=== PATIENT | female | born 1955 | race Caucasian/White ===

== ENCOUNTER → 2019-10-28 12:52 | Outpatient (CLI) | payer OTHER, SELFPAY ==
--- NOTE | ~2019-10-28 | XR_ITS ---
EXAMINATION: XR foot RT standing 2V DATE: 10/28/2019 13:41 INDICATION: Unspecified osteoarthritis, unspecified site. TECHNIQUE: 2 views of right foot standing were obtained. COMPARISON: None. FINDINGS: There is moderate hallux valgus. No fracture. There is mild osteoarthritis of first metatar sophalangeal joint and some of the interphalangeal joints and midfoot joints. There are enthesophytes at the plantar and posterior aspects of calcaneal tuberosity. IMPRESSION: 1. Mild polyarticular osteoarthritis. 2. Moderate hallux valgus. Reviewed, dictated and finalized at location A.
--- NOTE | ~2019-10-28 | XR_ITS ---
EXAMINATION: XR knee RT min 4V DATE: 10/28/2019 13:41 INDICATION: Unspecified osteoarthritis, unspecified site. TECHNIQUE: 4 views of right knee were obtained. COMPARISON: None. FINDINGS: Bone alignment is normal. No fracture. There is mild tricompartmental osteoarthritis. There is chondrocalcinosis of the menisci. There is a small knee joint effusion. IMPRESSION: 1. Mild right knee osteoarthritis. 2. Small right knee joint effusion. Reviewed, dictated and finalized at location A.
--- NOTE | ~2019-10-28 | XR_ITS ---
EXAMINATION: XR hand BI arthritis min 3V DATE: 10/28/2019 13:41 INDICATION: Unspecified osteoarthritis, unspecified site. TECHNIQUE: 4 views of right hand and 4 views of left hand on a total of 7 radiographs were obtained. COMPARISON: None. FINDINGS: RIGHT HAND: Bone alignment is normal. No fracture. There is mild osteoarthritis of first, second, and third metacarpophalangeal joints and all of the interphalangeal joints. LEFT HAND: Bone alignment is normal. No fracture. There is mild osteoarthritis of second and third me tacarpophalangeal joints and most of the interphalangeal joints. IMPRESSION: 1. Mild polyarticular osteoarthritis. Reviewed, dictated and finalized at location A.
--- NOTE | ~2019-10-28 | XR_ITS ---
EXAMINATION: XR knee LT min 4V DATE: 10/28/2019 13:41 INDICATION: Unspecified osteoarthritis, unspecified site. TECHNIQUE: 4 views of left knee were obtained. COMPARISON: None. FINDINGS: Bone alignment is normal. No fracture. There is moderate osteoarthritis of medial compartme nt and mild osteoarthritis of lateral and patellofemoral compartments. There is chondrocalcinosis of the menisci. There is a small knee joint effusion. IMPRESSION: 1. Moderate left knee osteoarthritis. 2. Small left knee joint effusion. Reviewed, dictated and finalized at location A.
--- NOTE | ~2019-10-28 | XR_ITS ---
XR hip BI 2V w AP pelvis DATE: 10/28/2019 13:41 INDICATION: Bilateral hip pain TECHNIQUE: AP pelvis. AP and lateral views of each hip COMPARISON: 05/30/2005 bilateral hip FINDINGS: Osteopenia. No pelvic fracture or bone destruction. The pubic symphysis and sacroiliac joints are intact; there i s joint space narrowing and spurring at the pubic symphysis. No fracture, dislocation, avascular necrosis or bone destruction of either hip. IMPRESSION: Osteopenia Degenerative change at the pubic symphysis Reviewed, dictated and finalized at location A.
--- NOTE | ~2019-10-28 | XR_ITS ---
XR foot LT standing 2V DATE: 10/28/2019 13:41 INDICATION: Osteoarthritis TECHNIQUE: Standing AP and lateral views COMPARISON: None FINDINGS: There is prominent chronic calcification along the distal Achilles tendon. Mild posterior and moderate plantar calcaneal enthesopathy. No fracture, dislocation, periosteal reaction or bone destruction. IMPRESSION: Achilles tendon calcification, posterior and plantar calcaneal enthesopathy Reviewed, dictated and finalized at location A. IMPRESSION: Achilles tendon calcification, posterior and plantar calcaneal enth esopathy
== END ==
PROVIDERS: PCP Family Medicine; Visit Provider Internal Medicine
DX: M19.041 Primary osteoarthritis, right hand (principal); M19.042 Primary osteoarthritis, left hand; M20.11 Hallux valgus (acquired), right foot; M19.071 Primary osteoarthritis, right ankle and foot; M85.859 Other specified disorders of bone density and structure, unspecified thigh; M25.461 Effusion, right knee; M77.32 Calcaneal spur, left foot; M25.462 Effusion, left knee; M17.0 Bilateral primary osteoarthritis of knee
CPT/HCPCS: 73130; 73521; 73564; 73620

== ENCOUNTER → 2021-04-20 14:35 | Outpatient (CLI) | payer OTHER, SELFPAY ==
--- NOTE | ~2021-04-20 | XR_ITS ---
EXAMINATION: XR_CERV2-3V_CR DATE: 04/20/2021 15:05 INDICATION: Neck pain. TECHNIQUE: 5 views of cervical spine standing were obtained. COMPARISON: None. FINDINGS: Bone alignment is normal. Vertebral body heights are normal. There is mildly decreased disc height at C3-C4, C5-C6, and C6-C7. There is multilevel uncovertebral joint osteoarthritis, severe on the right at C3-C4 on the left at C5-C6. There is multilevel mild facet joint osteoarthritis. There is mild central canal stenosis at C3-C4, C5-C6, and C6-C7. No prevertebral soft tissue swelling. IMPRESSION: 1. Mild cervical spondylosis. Reviewed, dictated and finalized at location A.
== END ==
PROVIDERS: PCP Physician Assistant; Visit Provider Physician Assistant
DX: M47.812 Spondylosis without myelopathy or radiculopathy, cervical region (principal)
CPT/HCPCS: 72040

== ENCOUNTER → 2022-07-17 11:04 | Outpatient (CLI) | payer MEDICARE, SELFPAY ==
--- NOTE | ~2022-07-17 | MM_ITS ---
EXAMINATION: MM screening [facility] BI w beverly HISTORY: Screening mammogram TECHNIQUE: Craniocaudal and mediolateral oblique 3-D tomosynthesis images were obtained and synthetic 2-D images were generated. CAD analysis was submitted and interpreted. COMPARISON: 05/29/2019, 05/19/2019, 01/24/2018 BREAST PARENCHYMAL COMPOSITION: The breasts are heterogeneously dense, which may obscure small masses . FINDINGS: RIGHT BREAST: An asymmetry is present in the far posterior third of the lower breast on the mediolate ral oblique view. LEFT BREAST: There are grouped calcifications in the posterior third of the upper outer quadrant of t he breast 13.8 cm from the nipple. IMPRESSION: 1. Right breast asymmetry and left breast calcifications. 2. Additional mammographic views and possible breast ultrasound are recommended. BI-RADS Category 0: Incomplete: Needs additional imaging evaluation. Reviewed, dictated and finalized at location A. 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 Right breast asymmetry and left breast calcifications. 2. Additional mammographic views and possible breast ultrasound are recommended . BI-RADS Category 0: Incomplete: Needs additional imaging evaluation.
== END ==
PROVIDERS: PCP Family Medicine; Visit Provider Family Medicine
DX: Z12.31 Encounter for screening mammogram for malignant neoplasm of breast (principal); R92.8 Other abnormal and inconclusive findings on diagnostic imaging of breast
CPT/HCPCS: 77063; 77067

== ENCOUNTER → 2022-08-06 08:30 | Outpatient (CLI) | payer MEDICARE, SELFPAY ==
--- NOTE | ~2022-08-06 | MMUS_ITS ---
EXAMINATION: MM diagnostic steve BI w beverly, US breast RT limited HISTORY: Follow-up right breast asymmetry and left breast calcifications TECHNIQUE: Additional 3-D tomosynthesis images of the breasts were performed and synthetic 2-D images were generated. CAD analysis was submitted and interpreted. High resolution Limited right breast ult rasound was performed. COMPARISON: Comparison to multiple prior studies sequentially, with oldest reviewed study dated 03/2018. BREAST PARENCHYMAL COMPOSITION: The breasts are heterogeneously dense, which may obscure small masses FINDINGS: MAMMOGRAPHIC FINDINGS: The right breast asymmetry inferiorly is less apparent with spot compression views. There are no disc rete masses or suspicious calcifications in the right breast. There is a developing cluster of indete rminate calcifications in the upper outer quadrant of the left breast. ULTRASOUND: Limited right breast ultrasound: At 3:00, 10 cm from the nipple there is an oval circumscribed hypoec hoic mass measuring 4 x 2 x 3 mm without posterior features or internal vascularity. No other discret e mass identified. IMPRESSION: 1. Indeterminate cluster of calcifications upper outer quadrant of the left breast. Stereotactic left breast biopsy recommended. 2. Probable benign right breast asymmetry and sonographic mass at 3:00, 10 cm from the nipple. Six-mo nth follow-up diagnostic mammogram and ultrasound recommended. BI-RADS category 4, suspicious findings. Reviewed, dictated and finalized at location A. [place] IMPRESSION: 1. Indeterminate cluster of calcifications upper outer quadrant of the left jaxon ast. Stereotactic left breast biopsy recommended. 2. Probable benign right breast asymmetry and sonographic mass at 3:00, 10 cm f rom the nipple. Six-month follow-up diagnostic mammogram and ultrasound recomme nded. BI-RADS category 4, suspicious findings.
== END ==
PROVIDERS: PCP Family Medicine; Visit Provider Physician Assistant
DX: R92.8 Other abnormal and inconclusive findings on diagnostic imaging of breast (principal)
CPT/HCPCS: 76642; 77062; 77066; G0279

== ENCOUNTER 2022-08-29 10:32 | Outpatient (CLI) | payer MEDICARE, SELFPAY ==
--- NOTE | ~2022-08-29 | MM_ITS ---
EXAMINATION: MM stereotactic bx LT, MM post biopsy diagnostic LT, MM stereotactic specimen LT, Specim en Radiograph, Tissue Marker Clip Placement, Unilateral Mammogram DATE: 08/29/2022 12:26 (accession [id number]), 08/29/2022 12:28 (accession [id number]), 08/29 12:27 (accession [id number]) INDICATION: Abnormal mammogram: Upper-outer quadrant calcifications. TECHNIQUE AND FINDINGS: The risks and potential benefits of the procedure were discussed with the patient and written informe d consent was obtained. Timeout procedure was performed. The patient was placed in the prone position on the dedicated stereotactic table with the left breast in craniocaudal compression, and the area o f interest was localized and targeted utilizing digital imaging with stereotaxis. After sterile preparation of the skin, 2 % lidocaine was utilized for local anesthesia at the skin pu ncture site and 2 % lidocaine with epinephrine was utilized for deeper local anesthesia/is about the biopsy site. A [employer]G [employer] vacuum assisted biopsy needle was advanced to the level of the calcification of interest from a cephalad approach utilizing stereotactic guidance and a total of 15 tissue core b iopsies were obtained. A specimen radiograph demonstrates that the calcifications of interest are included within the tissue cores. A tissue marker clip was then placed at the biopsy site. A digital mammographic exposure co nfirmed the successful deployment of the biopsy marker. The needle was removed and hemostasis was ac hieved. A sterile bandage was applied. The patient tolerated the procedure well and there is no bahman dence of significant immediate complication. The patient was given verbal as well as written postpro cedural instructions prior to discharge from the department. Tissue cores were submitted to surgical pathology for histologic analysis. A 2-view left unilateral digital mammogram was obtained post procedure, demonstrating the tissue page er clip in expected position. IMPRESSION: 1. Successful stereotactic biopsy of cluster grouped microcalcifications, upper inner left breast, followed by tissue marker clip placement. Please refer to pathology report for histologic analysis. Reviewed, dictated and finalized at Location A. Reviewed, dictated and finalized at location A. 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 Successful stereotactic biopsy of cluster grouped microcalcifications, upp er inner left breast, followed by tissue marker clip placement. Please refer t o pathology report for histologic analysis. IMPRESSION: 1. Successful stereotactic biopsy of cluster grouped microcalcifications, upp er inner left breast, followed by tissue marker clip placement. Please refer t o pathology report for histologic analysis.
== END 2022-08-29 10:33 | disposition home or self-care (01) ==
PROVIDERS: PCP Family Medicine; Visit Provider Family Medicine
DX: R92.8 Other abnormal and inconclusive findings on diagnostic imaging of breast (principal)
CPT/HCPCS: 19081; 77065; 88305; A4648

== ENCOUNTER 2022-12-25 07:59 | Outpatient (CLI) | payer MEDICARE, SELFPAY ==
--- NOTE | ~2022-12-25 | US_ITS ---
EXAMINATION:US venous doppler LE BI INDICATION:Leg swelling TECHNIQUE: Multiple grayscale, color flow and Doppler images of the right and left lower extremity de ep venous systems were obtained and reviewed. COMPARISON:No prior studies for comparison. FINDINGS: The common femoral, superficial femoral and popliteal veins demonstrate normal respiratory variation, augmentation and compressibility. Color flow is also seen within the posterior tibial, pe roneal, greater saphenous and profunda veins. IMPRESSION: 1: No lower extremity deep venous thrombosis. Reviewed, dictated and finalized at location L.
--- NOTE | ~2022-12-25 | US_ITS ---
US art doppler w press LE BI INDICATION: Peripheral vascular disease TECHNIQUE: Segmental pressures and plethysmographic and Doppler waveforms of the brachial and lower e xtremity arteries were obtained. COMPARISON: None. FINDINGS: Right and left brachial artery pressures of 131 mm Hg and 124 mm Hg, respectively, are concordant (no rmal difference <= 30 mmHg). The right ankle-brachial index (NAHID) is 1.3 (normal >= 0.9-1.0). The right great toe-brachial index ( TBI) is 0.5 (normal >= 0.60). The left NAHID is 1.15. The left TBI is 1.02. IMPRESSION: 1. Mildly decreased right toe brachial index, consistent with peripheral arterial disease. 2: Normal left ankle and toe brachial indices. Reviewed, dictated and finalized at location L. IMPRESSION: 1. Mildly decreased right toe brachial index, consistent with peripheral arteri al disease. 2: Normal left ankle and toe brachial indices.
--- NOTE | ~2022-12-25 | US_ITS ---
US soft tissue abdomen 12/25/2022 08:50 Indication: Palpable left upper abdominal wall mass Procedure: High-resolution Limited soft tissue ultrasound of the left upper abdomen Comparison: No prior studies for comparison. Findings: In the area of palpable concern there is an oval isoechoic circumscribed mass with parallel orientation, no posterior features and parallel oriented internal striations measuring 1.7 x 1.6 x 0 .8 cm. No internal vascularity. No other masses are identified. Impression: 1: Oval isoechoic 1.7 cm mass in the area of palpable concern of the left upper abdomen soft tissues. Imaging characteristics are most consistent with benign lipoma. Consider follow-up ultrasound in 6-1 2 months to assess stability, unless clinical changes occur during the interim. Reviewed, dictated and finalized at location L. Impression: 1: Oval isoechoic 1.7 cm mass in the area of palpable concern of the left upper abdomen soft tissues. Imaging characteristics are most consistent with benign lipoma. Consider follow-up ultrasound in 6-12 months to assess stability, unles s clinical changes occur during the interim.
== END 2022-12-25 08:00 | disposition home or self-care (01) ==
PROVIDERS: PCP Family Medicine; Visit Provider Nurse Practitioner Gerontology
DX: M79.673 Pain in unspecified foot (principal); R60.9 Edema, unspecified; I73.9 Peripheral vascular disease, unspecified
CPT/HCPCS: 76705; 93923; 93970

== ENCOUNTER → 2023-04-16 09:56 | Outpatient (CLI) | payer MEDICARE, SELFPAY ==
--- NOTE | ~2023-04-16 | MMUS_ITS ---
EXAMINATION: MM diagnostic steve RT w beverly, US breast RT limited HISTORY: Six-month follow-up for probably benign right breast asymmetry. TECHNIQUE: Craniocaudal, mediolateral, and mediolateral oblique 3-D tomosynthesis images of the right breast were performed and synthetic 2-D images were generated. CAD analysis was submitted and interp reted. High resolution limited right breast ultrasound was performed. COMPARISON: 08/06/2022, 07/17/2022, 05/19/2019, 01/24/2018, 12/13/2016 BREAST PARENCHYMAL COMPOSITION: The breasts are heterogeneously dense, which may obscure small masses . FINDINGS: MAMMOGRAPHIC FINDINGS: There has been interval resolution of the previously described right breast asymmetry. No suspicious mass, calcification, or architectural distortion are identified. ULTRASOUND: There is a stable 4 mm x 2 mm oval, circumscribed, parallel, hypoechoic mass with no posterior featur es or internal vascularity at the 3:00 location, 10 cm from the nipple. IMPRESSION: 1. Interval resolution of the previously described right breast asymmetry and stable sonographically detected, probably benign right breast mass. 2. Recommend 6 month follow-up targeted right breast ultrasound and bilateral screening mammogram. BI-RADS category 3, probably benign findings. Reviewed, dictated and finalized at location A. IMPRESSION: 1. Interval resolution of the previously described right breast asymmetry and s table sonographically detected, probably benign right breast mass. 2. Recommend 6 month follow-up targeted right breast ultrasound and bilateral s creening mammogram. BI-RADS category 3, probably benign findings.
== END ==
PROVIDERS: PCP Family Medicine; Visit Provider Family Medicine
DX: N63.0 Unspecified lump in unspecified breast (principal); R92.8 Other abnormal and inconclusive findings on diagnostic imaging of breast
CPT/HCPCS: 76642; 77061; 77065; G0279

== ENCOUNTER 2023-08-22 11:41 | Outpatient (CLI) | payer MEDICARE, SELFPAY ==
[2023-08-22 12:29] LABS: Influenza A QL RT-PCR Negative (Negative); Influenza B QL RT-PCR Negative (Negative); RSV RNA, RT-PCR Positive (Negative); SARS-CoV-2 RNA PCR Negative (Negative)
== END 2023-08-22 11:42 | disposition home or self-care (01) ==
LOC: ANHLAB 11:44
PROVIDERS: PCP Family Medicine; Visit Provider Family Medicine
DX: J18.9 Pneumonia, unspecified organism (principal); Z20.822 Contact with and (suspected) exposure to COVID-19
CPT/HCPCS: 87637

== ENCOUNTER → 2023-10-22 11:27 | Outpatient (CLI) | payer MEDICARE, SELFPAY ==
--- NOTE | ~2023-10-22 | MMUS_ITS ---
EXAMINATION: MM screening steve BI w beverly, US breast RT limited HISTORY: Screening mammogram TECHNIQUE: Craniocaudal and mediolateral oblique 3-D tomosynthesis images were obtained and synthetic 2-D images were generated. CAD analysis was submitted and interpreted. Targeted ultrasound of right breast at 2:00 and 3:00. COMPARISON: Serial mammogram and ultrasound examinations dating back to 07/17/2020 BREAST PARENCHYMAL COMPOSITION: The breasts are heterogeneously dense, which may obscure small masses . BILATERAL SCREENING MAMMOGRAM FINDINGS: There is a biopsy marker on the left; history of prior benign left stereotactic breast biopsy in August 2022. Scattered bilateral benign calcifications are again noted. There is no evidence of suspicious mass, calcification, or architectural distortion to sugges t malignancy in either breast. There has been no suspicious interval change. TARGETED RIGHT BREAST ULTRASOUND FINDINGS: No suspicious mass or shadowing or other significant sonog raphic abnormalities detected. IMPRESSION: 1. Benign calcifications. No mammographic evidence of malignancy. 2. Recommend routine screening mammography in one year. BI-RADS Category 2: Benign finding(s). Reviewed, dictated and finalized at location A. [place] IMPRESSION: 1. Benign calcifications. No mammographic evidence of malignancy. 2. Recommend routine screening mammography in one year. BI-RADS Category 2: Benign finding(s).
== END ==
PROVIDERS: PCP Physician Assistant; Visit Provider Physician Assistant
DX: Z12.31 Encounter for screening mammogram for malignant neoplasm of breast (principal); R92.8 Other abnormal and inconclusive findings on diagnostic imaging of breast
CPT/HCPCS: 76642; 77063; 77067

== ENCOUNTER 2024-11-06 08:40 | Outpatient (CLI) | payer MEDICARE, SELFPAY ==
--- NOTE | ~2024-11-06 | MM_ITS ---
EXAMINATION: MM screening steve BI w beverly HISTORY: Screening TECHNIQUE: Craniocaudal and mediolateral oblique 3-D tomosynthesis images were obtained and synthetic 2-D images were generated. CAD analysis was submitted and interpreted. COMPARISON: Comparison to multiple prior studies sequentially, with oldest reviewed study dated 08/2018. BREAST PARENCHYMAL COMPOSITION: Dense: The breasts are extremely dense, which lowers the sensitivity of mammography. FINDINGS: No significant 2 benign-appearing bilateral breast calcifications. There is no evidence of suspicious mass, calcification, or architectural distortion to suggest malignancy in either breast. T here has been no suspicious interval change. IMPRESSION: 1. No mammographic evidence of malignancy. 2. Recommend routine screening mammography in one year. BI-RADS Category 2: Benign finding(s). Reviewed, dictated and finalized at location B.
--- OUTSIDE RECORDS SUMMARY | 2024-11-06 09:28 | XMS_ITS | Clinical Summary ---
Author Organization [facility] Address [address] [place] [address] Care Team Providers Care Alum Plant Supervisor Name Role Phone Eli Palma MD Primary Care Provider + Source Comments [facility] [employer],non-owned Affiliates and Associated Physician Practices is amultiple site organization consisting of ambulatory clinics and hospital sitesin [place], [place], [place] and [place]. This disclosure is being madepursuant to the Care Everywhere program and may not contain all information available regarding this patient. Last updated 18.[facility] [employer] Allergies No known active allergies Medications * Be aware that medications may not be up to date on this document. Alwaysverify current medications with the patient. Medication Sig Dispensed Refills Start Date End Date Status lisinopril (Prinivil; Zestril) 2.5 MG tablet every 24 hours Active rosuvastatin (Crestor) 5 MG tablet 02/26/2022 Active Social History Tobacco Use Types Packs/Day Years Used Date Smoking Tobacco: Never Smokeless Tobacco: Never Alcohol Use Standard Drinks/Week Comments Not Currently 0 (1 standard drink = 0.6 oz pur e alcohol) occasional Sex and Gender Information Value Date Recorded Sex Assigned at Not on file Gender Identity Not on file Sexual Orientation Not on file Last Filed Vital Signs Vital Sign Reading Time Taken Comments Blood Pressure 140/78 05/22/2022 12:57 PM CDT Pulse - - Temperature - - Respiratory Rate - - Oxygen Saturation - - Inhaled Oxygen Concentration - - Weight 112 kg (247 lb) 05/22/2022 12:57 PM CDT Height 162.6 cm (5' 4 ) 05/22/2022 12:57 PM CDT Body Mass Index 42.4 05/22/2022 12:57 PM CDT Plan of Treatment Health Maintenance Due Date Last Done Comments BONE DENSITY TESTING 1957 COLOGUARD (AGES 45-75) - COL ON CA SCREENING 1957 COLON MONITORING 1957 COLONOSCOPY - COLON CA SCREENING 1957 CT COLONOGRAPHY - COLON CA SCREENING 1957 Colorectal Cancer Screening 1957 FIT - COLON CA SCREENING 1957 FLEX SIG - COLON CA SCREENING 1957 MAMMOGRAM 1957 HEPATITIS C SCREENING 03/09/1975 DTAP/TDAP/TD VACCINES (1 - Tdap) 1976 PNEUMOCOCCAL VACCINE 50+ (1 of 1 - PCV) 2007 ZOSTER VACCINE (1 of 2) 2007 Respiratory Syncytial Virus (RSV) Vaccine Pt: or over 60 yrs (1 - Risk 60-74 years 1-dose series) 2017 SCREENING FOR DIABETES 05/22/2022 COVID-19 VACCINE (1 - 2023-2 5 season) 2024 INFLUENZA VACCINE (#1) 2024 DEPRESSION SCREENING 08/19/2024 MEDICARE AWV CALENDAR YEAR 2024 HEPATITIS B VACCINE Aged Out No longe r eligible based on patient's age to complete this topic HIB VACCINE Aged Out No longer eligi ble based on patient's age to complete this topic HPV VACCINE Aged Out No longer eligi ble based on patient's age to complete this topic MENINGOCOCCAL (Group B) VACC INE SHARED DECISION-MAKING Aged Out No longer eligibl e based on patient's age to complete this topic MENINGOCOCCAL GROUPS A/C/Y/W VACCINE Aged Out No longer eligible b ased on patient's age to complete this topic Care Teams Alum Plant Supervisor Relationship Specialty Start Date End Date Eli Palma MD [address] [place] [address] PCP - General 05/16/22
--- OUTSIDE RECORDS SUMMARY | 2024-11-06 09:28 | XMS_ITS | Clinical Summary ---
Author Organization [facility] Address [address] [place] [address] Phone Care Team Providers Care White Shoe Ragger Name Role Phone Eli Palma MD Primary Care Provider [phone]- [phone] Allergies No known active allergies Medications lisinopril-hydr oCHLOROthiazide (ZESTORETIC) 10-12.5 mg tablet TAKE ONE TABLET DAILY 4 01/02/2018 Active busPIRone (BUSPAR) 15 mg Tablet 03/05/2018 Active HYDROcodone-bird taminophen (NORCO) 5-325 mg tablet Take 1 Tablet by mouth every 6 hours as needed for Pain. Max Daily Amount: 4 Tablets 20 Tablet 04/01/2018 Active Active Problems Patient Care Coordination No te Formatting of this note migh t be different from the original. Primary Care: Eli Palma MD Referring Provider: Eli Palma MD [address] [place] [address] Other: Dr Elsa Magaña MD Problem Noted Date Diagnosed Date Fibrocystic breast 08/26/2018 HTN (hypertension) Anxiety Family History Medical History Relation Name Comments Leukemia Father Breast Cancer Maternal Cousin double cousin Cancer Maternal Grandmother stomach Breast Cancer Other matgaunt Relation Name Status Comments Father Maternal Cousin double cousin Alive Maternal Grandmother Other matgaunt Alive Social History Tobacco Use Types Packs/Day Years Used Date Smoking Tobacco: Never Smokeless Tobacco: Never Alcohol Use Standard Drinks/Week Comments Yes 0 (1 standard drink = 0.6 oz pur e alcohol) Comments No Sex and Gender Information Value Date Recorded Sex Assigned at Not on file Legal Sex Female 4:19 PM CDT Gender Identity Not on file Sexual Orientation Not on file Last Filed Vital Signs Vital Sign Reading Time Taken Comments Blood Pressure 103/59 04/01/2018 12:45 PM CDT Pulse 62 04/01/2018 12:45 PM CDT Temperature 36.4 C (97.5 F) 04/01/2018 12:02 PM CDT Respiratory Rate 13 04/01/2018 12:45 PM CDT Oxygen Saturation 96% 04/01/2018 12:45 PM CDT Inhaled Oxygen Concentration - - Weight 102.5 kg (226 lb) 04/01/2018 10:57 AM CDT Height 162.6 cm (5' 4 ) 04/01/2018 10:57 AM CDT Body Mass Index 38.79 04/01/2018 10:57 AM CDT Plan of Treatment Health Maintenance Due Date Last Done Comments DTAP/TDAP/TD VACCINES (1 - Tdap) 1976 COLORECTAL SCREENING 2002 Colorectal Cancer Screening 2002 FIT-DNA Q 3 years 2002 FIT/FOBT Q 1 year 2002 Flex Sig/CT Colonography Q 5 years 2002 PNEUMOCOCCAL VACCINE 50+ YEA RS (1 of 1 - PCV) 2007 ZOSTER VACCINE (1 of 2) 2007 BREAST CANCER SCREENING 01/24/2019 01/25/20 18, 12/24/2017, 12/13/2016 OSTEOPOROSIS SCREENING 2022 INFLUENZA VACCINE (#1) 2024 RSV VACCINE (60+ or ) (1 - 1-dose 75+ series) 2032 Procedures Procedure Name Priority Date/Time Associated Diagnosis Comments MAMMO DIAGNOSTIC BILATERAL W OR WO CAD Routine 01/24/2018 from Last 3 Months or Most Recently Relevant to Health Maintenance Results * MAMMO DIAGNOSTIC BILATERAL W OR WO CAD (01/24/2018) Anatomical Region Laterality Modality Breast Bilateral Mammography Jessenia ESCOBAR MAMMO ORDERABLES Edited Resu lt - Final from Last 3 Months or Most Recently Relevant to Health Maintenance Insurance Care Teams White Shoe Ragger Relationship Specialty Start Date End Date Eli Palma MD PCP - General Family Practice 03/14/18
== END 2024-11-06 08:41 | disposition home or self-care (01) ==
PROVIDERS: PCP Family Medicine; Visit Provider Physician Assistant Medical
DX: Z12.31 Encounter for screening mammogram for malignant neoplasm of breast (principal)
CPT/HCPCS: 77063; 77067

== ENCOUNTER 2024-12-09 10:40 | Outpatient (RCR) | payer MEDICARE, SELFPAY ==
[2024-12-09 10:54] VITALS: BMI 43.4
[2024-12-09 10:55] VITALS: BMI 43.4
== END 2025-03-02 07:54 | disposition home or self-care (01) ==
LOC: ANHDMC 10:40
PROVIDERS: PCP Family Medicine; Visit Provider Family Medicine
DX: E11.9 Type 2 diabetes mellitus without complications (principal); E78.5 Hyperlipidemia, unspecified; Z71.3 Dietary counseling and surveillance
CPT/HCPCS: 97802

== ENCOUNTER 2025-06-18 08:56 | Outpatient (CLI) | payer MEDICARE, SELFPAY ==
--- NOTE | 2025-06-18 09:01 | EST_ITS ---
Patient Info Name: Rosa Isela Arriaga Age: 70 years : 1955 Gender: Female Ht: 64 in Wt: 240 lbs BSA: 2.27 m2 HR: 68 bpm BP: 142 / 77 mmHg Exam Date: 06/18/2025 9:01 AM Patient Status: O Admit Date: 06/18/2025 Exam Type: CA stress test treadmill A treadmill exercise stress test was performed. Staff Attending Provider: Maryse Cuevas Exercise Technologist: Sofia Anderson Exercise Physician: Hua Sanabria DO Summary 1. 1. Negative Cristóbal exercise stress test for ischemic ST changes by ECG criteria. 2. 2. Reduced functional capacity, achieving 4.7 METs of workload. 3. 3. Rapid HR response to exercise. 4. 4. Appropriate HR recovery at 1 minute post exercise. 5. 5. No imaging with stress testing. 6. 6. Patient informed of the above results. Protocol: Cristóbal Stress ECG Details Stage: REST Duration (min): 1 min : 0 sec Speed (mph): 0.0 Grade (%): 0 HR (bpm): 67 SBP (mmHg): 142 DBP (mmHg): 77 METS: --- Stage: REST Duration (min): 5 min : 22 sec Speed (mph): 0.0 Grade (%): 0 HR (bpm): 76 SBP (mmHg): 142 DBP (mmHg): 77 METS: --- Stage: STAGE 1 Duration (min): 1 min : 0 sec Speed (mph): 1.7 Grade (%): 10 HR (bpm): 120 SBP (mmHg): 142 DBP (mmHg): 77 METS: --- Stage: STAGE 1 Duration (min): 2 min : 0 sec Speed (mph): 1.7 Grade (%): 10 HR (bpm): 146 SBP (mmHg): 142 DBP (mmHg): 77 METS: --- Stage: STAGE 1 Duration (min): 3 min : 0 sec Speed (mph): 1.7 Grade (%): 10 HR (bpm): 147 SBP (mmHg): 125 DBP (mmHg): 68 METS: --- Stage: RECOVERY Duration (min): 0 min : 59 sec Speed (mph): 0.0 Grade (%): 0 HR (bpm): 99 SBP (mmHg): 125 DBP (mmHg): 68 METS: --- Stage: RECOVERY Duration (min): 1 min : 59 sec Speed (mph): 0.0 Grade (%): 0 HR (bpm): 64 SBP (mmHg): 125 DBP (mmHg): 68 METS: --- Stage: RECOVERY Duration (min): 2 min : 59 sec Speed (mph): 0.0 Grade (%): 0 HR (bpm): 75 SBP (mmHg): 130 DBP (mmHg): 70 METS: --- Stage: RECOVERY Duration (min): 3 min : 59 sec Speed (mph): 0.0 Grade (%): 0 HR (bpm): 72 SBP (mmHg): 130 DBP (mmHg): 70 METS: --- Stage: RECOVERY Duration (min): 4 min : 59 sec Speed (mph): 0.0 Grade (%): 0 HR (bpm): 70 SBP (mmHg): 112 DBP (mmHg): 68 METS: --- Stage: RECOVERY Duration (min): 5 min : 6 sec Speed (mph): 0.0 Grade (%): 0 HR (bpm): 69 SBP (mmHg): 112 DBP (mmHg): 68 METS: --- Rest HR: 76 bpm Peak HR: 146 bpm Rest Sys BP: 142 mmHg Peak Sys BP: 130 mmHg Max Pred HR: 152 bpm % Max Pred HR: 96 % Target HR: 129 bpm Max RPP: 18,980 bpm*mmHg Milian Score: 1 Termination Reason: Reached target heart rate or workload Cardiac Symptoms: Shortness of breath Max ST Seg Deviation: -0.50 mm Total Time: 3 min : 0 sec Rest Faith BP: 77 mmHg Peak Faith BP: 70 mmHg Angina Score: None Total METS: 4.7 Resting ECG Sinus rhythm. Stress ECG No ST changes. Arrhythmias None. Report Signatures
--- OUTSIDE RECORDS SUMMARY | 2025-06-18 09:16 | XMS_ITS | Clinical Summary ---
Author Organization [facility] Address [address] [place] [address] Phone Care Team Providers Care Medical Videographer Name Role Phone Eli Palma MD Primary Care Provider [phone] Allergies No known active allergies Medications lisinopril-hydr [...] MD Referring Provider: Eli Palma MD [address] [place] [address] Other: Dr Elsa Magaña MD Problem Noted [...] 10:57 AM CDT Height 162.6 cm (5' 4) 04/01/2018 10:57 AM CDT Body Mass Index [...] 12/13/2016 OSTEOPOROSIS SCREENING 2022 INFLUENZA VACCINE (#1) 2025 RSV VACCINE (60+ or ) (1 - [...] Relevant to Health Maintenance Insurance Care Teams Medical Videographer Relationship Specialty Start Date End Date Eli Palma MD PCP - General Family Practice 03/14/18
== END 2025-06-18 08:57 | disposition home or self-care (01) ==
PROVIDERS: PCP Family Medicine; Visit Provider Physician Assistant
DX: R07.9 Chest pain, unspecified (principal)
CPT/HCPCS: 93017